=== PATIENT | male | born 1950 | race Caucasian/White ===

== ENCOUNTER 2017-01-28 10:03 | Emergency (ER) | payer MEDICARE, BC ==
[2017-01-28] MEDS ORDERED: Sodium Chloride 0.9% 10 ML Syringe FLUSH PRN ×2 (10:55→11:00)
[2017-01-28] MEDS ORDERED: Sodium Chloride 0.9% 1,000 ML IV SCH (11:00)
[2017-01-28] MEDS ORDERED: Diatrizoate Meglumine/Diatrizoate Sodium 37% 120 ML Bottle PO ONE (11:00)
[2017-01-28] MEDS ORDERED: Iopamidol 612 MG/ML 150 ML Bottle IVPUSH ONE (11:00)
--- NOTE | 2017-01-28 12:46 | EDM.PDOC ---
ED HPI GI/ABDOMINAL - General Chief Complaint: Abdominal Pain Stated Complaint: ABDOMINAL PAIN X1 WEEK Time Seen by Provider: 01/28/17 10:49 Source of Information: Reports: Patient History Limitations: Reports: No limitations - History of Present Illness INITIAL COMMENTS - FREE TEXT/NARRATIVE: The patient presents with left lower abdominal pain for the past week. This morning he woke up and it was more severe and sharp. He was nauseated last night. He had been constipated and he took some milk of magnesia last night and he had some diarrhea. He had a headache last night. He has no nausea or vomiting now. The pain is good now. He has no fever or chills. He has no chest pain or shortness of breath. He has no dysuria. He still has his gallbladder but his appendix was removed when he was a child. Timing/Duration: Reports: Week(s): (1) Location: [facility] Quality: Reports: stabbing Severity: moderate Context: Denies: sick contact, bad/questionable food, out of country travel, recent surgery, recent trauma, lifting, activity/exercise Associated Symptoms: Reports: diarrhea, nausea/vomiting. Denies: chest pain, fever/chills - Related Data Allergies/ADRs: Allergies Allergy/AdvReac Type Severity Reaction Status Date / Time No Known Allergies Allergy Verified 01/28/17 10:45 Home Meds: Home Meds Dabigatran Etexilate Mesylate [Pradaxa] 150 mg PO DAILY 01/28/17 [History] Flecainide Acetate 50 mg PO DAILY 01/28/17 [History] Hydrocodone/Acetaminophen [Hydrocodon-Acetaminophen 5-325] 1 - 2 each PO Q6HR PRN #20 tablet 01/28/17 [Rx] Losartan [Cozaar] 50 mg PO DAILY 01/28/17 [History] Metoprolol Tartrate 25 mg PO DAILY 01/28/17 [History] Rosuvastatin [Crestor] 10 mg PO DAILY 01/28/17 [History] Tamsulosin HCl [Flomax] 0.4 mg PO DAILY #10 cap.er.24h 01/28/17 [Rx] Past Medical History Cardiovascular History: Reports: Afib Gastrointestinal History: Reports: Other (see below) Other Gastrointestinal History: Pt had resection of colon 10 years ago after precancerous polyp was found Genitourinary History: Reports: Renal calculus Other Genitourinary History: kidney stones Other Psychiatric History: Pt states "I am a vasel vagel type of jennifer, I have been known to pass out when a needle comes my way." Other Dermatologic History: Rosacia - Past Surgical History Cardiovascular Surgical History: Reports: Pacer GI Surgical History: Reports: Hernia repair/other Musculoskeletal Surgical History: Reports: Other (see below) Other Musculoskeletal Surgeries/Procedures:: Back surgery to repair disk in 1985 Social & Family History - Tobacco Use Smoking Status *Q: Never Smoker Second Hand Smoke Exposure: Yes - Caffeine Use Caffeine Use: Reports: Coffee - Recreational Drug Use Recreational Drug Use: No ED ROS GENERAL - Review of Systems Review Of Systems: See Below Constitutional: Reports: no symptoms HEENT: Reports: No symptoms Respiratory: Reports: No Symptoms Cardiovascular: Reports: No symptoms Endocrine: Reports: no symptoms GI/Abdominal: Reports: Abdominal pain, Nausea. Denies: Vomiting : Reports: no symptoms Musculoskeletal: Reports: no symptoms Skin: Reports: no symptoms Neurological: Reports: Headache ED EXAM, GI/ABD - Physical Exam Exam: See Below Exam Limited By: No limitations General Appearance: alert, no apparent distress Ears: normal external exam Nose: normal inspection Head: atraumatic, normocephalic Neck: normal inspection Respiratory/Chest: no respiratory distress, lungs clear, normal breath sounds Cardiovascular: regular rate, rhythm, no edema, no murmur GI/Abdominal: soft, non tender, no organomegaly Back Exam: normal inspection Extremities: normal inspection Course - Vital Signs Last Recorded V/S: Last Vital Signs Temp 98 F 01/28/17 10:41 Pulse 70 01/28/17 10:41 Resp 18 01/28/17 10:41 BP 142/91 H 01/28/17 10:41 Pulse Ox 97 01/28/17 10:41 - Orders/Labs/Meds Orders: Active Orders 24 hr Category Date Time Status Peripheral IV Care [RC] . DIRECTED Care 01/28/17 10:56 Active Sodium Chloride 0.9% [Normal Saline] 1,000 ml Med 01/28/17 11:00 Active IV ASDIRECTED Sodium Chloride 0.9% [Saline Flush] Med 01/28/17 10:55 Active 10 ml FLUSH ASDIRECTED PRN Sodium Chloride 0.9% [Saline Flush] Med 01/28/17 11:00 Active 10 ml FLUSH ONETIME PRN Peripheral IV Insertion Adult [OM.PC] Stat Oth 01/28/17 10:55 Ordered Medication Orders Sodium Chloride (Normal Saline) 1,000 mls @ 125 mls/hr IV ASDIRECTED ANGEL Last Admin: 01/28/17 11:16 Dose: 125 mls/hr Sodium Chloride (Saline Flush) 10 ml FLUSH ASDIRECTED PRN PRN Reason: Keep Vein Open Last Admin: 01/28/17 11:16 Dose: 10 ml Sodium Chloride (Saline Flush) 10 ml FLUSH ONETIME PRN PRN Reason: IV FLUSH Last Admin: 01/28/17 12:11 Dose: 10 ml Labs: Laboratory Tests 01/28/17 01/28/17 01/28/17 Range/Units 11:15 11:15 Unknown WBC 7.38 (4.23-9.07) K/mm3 RBC 5.24 (4.63-6.08) M/mm3 Hgb 16.0 (13.7-17.5) gm/L Hct 47.3 (40.1-51.0) % MCV 90.3 (79.0-92.2) fl MCH 30.5 (25.7-32.2) pg MCHC 33.8 (32.2-35.5) g/dl RDW Std Deviation 44.2 H (35.1-43.9) fL Plt Count 197 (163-337) K/mm3 MPV 10.4 (9.4-12.3) fl Neut % (Auto) 76.9 H (34.0-67.9) % Lymph % (Auto) 13.6 L (21.8-53.1) % [place] % (Auto) 8.4 (5.3-12.2) % Eos % (Auto) 0.7 L (0.8-7.0) Baso % (Auto) 0.1 (0.1-1.2) % Neut # (Auto) 5.68 H (1.78-5.38) K/mm3 Lymph # (Auto) 1.00 L (1.32-3.57) K/mm3 [place] # (Auto) 0.62 (0.30-0.82) K/mm3 Eos # (Auto) 0.05 (0.04-0.54) K/mm3 Baso # (Auto) 0.01 (0.01-0.08) K/mm3 Sodium 140 (136-145) mEq/L Potassium 4.0 (3.5-5.1) mEq/L Chloride 106 (98-107) mEq/L Carbon Dioxide 24 (21-32) mEq/L Anion Gap 14.0 (5-15) BUN 17 (7-18) mg/dL Creatinine 1.1 (0.7-1.3) mg/dL Est Cr Clr Drug Dosing 71.53 mL/min Estimated GFR (MDRD) > 60 (>60) mL/min BUN/Creatinine Ratio 15.5 (14-18) Glucose 136 H (80-115) mg/dL Calcium 10.0 (8.5-10.1) mg/dL Total Bilirubin 0.9 (0.2-1.0) mg/dL AST 24 (15-37) U/L ALT 52 (16-63) U/L Alkaline Phosphatase 78 (46-116) U/L Total Protein 7.2 (6.4-8.2) g/dl Albumin 3.7 (3.4-5.0) g/dl Globulin 3.5 gm/dL Albumin/Globulin Ratio 1.1 (1-2) Lipase 91 (73-393) U/L Urine Color [place] H (Yellow) Urine Appearance Turbid H (Clear) Urine pH 6.5 (5.0-8.0) Ur Specific [place] 1.020 (1.005-1.030) Urine Protein 2+ H (Negative) Urine Glucose (UA) Negative (Negative) Urine Ketones Negative (Negative) Urine Occult Blood 3+ H (Negative) Urine Nitrite Negative (Negative) Urine Bilirubin 1+ H (Negative) Urine Urobilinogen 0.2 (0.2-1.0) Ur Leukocyte Esterase Negative (Negative) Urine RBC Too numerous to cnt H (0-5) /hpf Urine WBC 5-10 H (0-5) /hpf Ur Epithelial Cells Not seen (0-5) /hpf Urine Bacteria Not seen (FEW) /hpf Urine Mucus Not seen (FEW) /hpf Meds: Medications Generic Name Dose Route Start Last Admin Trade Name Freq PRN Reason Stop Dose Admin Sodium Chloride 1,000 mls @ 125 mls/hr 01/28/17 11:00 01/28/17 11:16 Normal Saline IV 125 mls/hr ASDIRECTED ANGEL Administration Sodium Chloride 10 ml 01/28/17 10:55 01/28/17 11:16 Saline Flush FLUSH 10 ml ASDIRECTED PRN Administration Keep Vein Open Sodium Chloride 10 ml 01/28/17 11:00 01/28/17 12:11 Saline Flush FLUSH 10 ml ONETIME PRN Administration IV FLUSH Discontinued Medications Generic Name Dose Route Start Last Admin Trade Name Rona PRN Reason Stop Dose Admin Diatrizoate Meglum/Diatrizoate Sod 120 ml 01/28/17 11:00 01/28/17 12:11 Gastrografin 37% PO 01/28/17 11:01 90 ml ONETIME ONE Administration Iopamidol 150 ml 01/28/17 11:00 01/28/17 12:11 Isovue-300 (61%) IVPUSH 01/28/17 11:01 150 ml ONETIME ONE Administration - Re-Assessments/Exams Free Text/Narrative Re-Assessment/Exam: 01/28/17 12:49 I ordered an IV NS. He does not need anything for pain or nausea at this time. His CBC looks good. His CMP was negative. His UA shows blood but no UTI. His CT looks like to me that he has a kidney stone. I am awaiting an official report. 01/28/17 13:[address] shows a 6.3mm partially obstructing stone within the distal ureter at at the level of the midpelvis. This causes mild proximal hydronerphrosis. Multiple cysts within the left kidney as well as several nonobstructing calculi within the left kidney. He is doing good. He did not require any pain meds. He has had kidney stones before and saw Dr Ramirez in the past. I will get him on some flomax and something for pain and have him follow up with Dr Ramirez's office. Departure - Departure Time of Disposition: 13:40 Disposition: Home, Self-Care 01 Condition: good Clinical Impression: Kidney stone, Ureteral calculi Prescriptions: Hydrocodone/Acetaminophen [Hydrocodon-Acetaminophen 5-325] 1 - 2 each PO Q6HR PRN #20 tablet PRN Reason: Pain Tamsulosin HCl [Flomax] 0.4 mg PO DAILY #10 cap.er.24h Referrals: Chirag Olivarez MD [Primary Care Provider] - 1 Week () Joseph Ramirez MD [Physician] - Forms: ED Department Discharge Additional Instructions: Take the flomax daily. Take the hydrocodone every 6 hours as needed for pain. Call Dr Ramirez's office today and see when they can get you in. Please return if you are worse. - My Orders Last 24 Hours: My Active Orders 01/28/17 10:55 Sodium Chloride 0.9% [Saline Flush] 10 ml FLUSH ASDIRECTED PRN Peripheral IV Insertion Adult [OM.PC] Stat 01/28/17 10:56 Peripheral IV Care [RC] . DIRECTED 01/28/17 11:00 Sodium Chloride 0.9% [Normal Saline] 1,000 ml IV ASDIRECTED Sodium Chloride 0.9% [Saline Flush] 10 ml FLUSH ONETIME PRN - Assessment/Plan Last 24 Hours: My Active Orders 01/28/17 10:55 Sodium Chloride 0.9% [Saline Flush] 10 ml FLUSH ASDIRECTED PRN Peripheral IV Insertion Adult [OM.PC] Stat 01/28/17 10:56 Peripheral IV Care [RC] . DIRECTED 01/28/17 11:00 Sodium Chloride 0.9% [Normal Saline] 1,000 ml IV ASDIRECTED Sodium Chloride 0.9% [Saline Flush] 10 ml FLUSH ONETIME PRN
--- NOTE | 2017-01-28 13:15 | CT ---
CT abdomen and pelvis Technique: Multiple axial sections were obtained from above the dome of the diaphragm inferiorly through the pubic symphysis. Intravenous and oral contrast was utilized. Delayed images were also obtained through the abdomen and pelvis. Findings: Multiple cysts are seen within the left kidney. Several nonobstructing calculi are also seen within the left kidney. Left ureter is mildly prominent in size. Calcification is identified within the distal ureter at the mid pelvic level measuring approximately 6.3 mm in size which is felt compatible with a partially obstructing ureteral stone. Delayed images shows contrast past this stone. Contrast filled ureters otherwise appear unremarkable. Visualized lung bases shows nothing acute. Liver shows no focal parenchymal abnormality. Spleen appears within normal limits. Adrenal glands show no nodule. Pancreas is within normal limits. Aorta shows mild ectasia and atherosclerotic change without aneurysmal dilatation. No retroperitoneal adenopathy or mesenteric abnormalities are seen. No pelvic mass or adenopathy is seen. Incidental prostate calcifications are seen. Multiple diverticuli are seen within the descending and sigmoid colon without inflammatory change of diverticulitis. Bone window settings were reviewed which show scattered degenerative change and scoliosis within the spine. Impression: 1. 6.3 mm partially obstructing stone within the distal ureter at the level of the midpelvis. This causes mild proximal hydronephrosis. 2. Multiple cysts within the left kidney as well as several nonobstructing calculi within the left kidney. 3. Other incidental findings as described above. Diagnostic code #3
[2017-01-28 14:07] VITALS: BP 142/90
== END 2017-01-28 14:00 | disposition home or self-care (01) ==
LOC: JD.ED 10:03
DX: N20.0 Calculus of kidney (principal); N13.2 Hydronephrosis with renal and ureteral calculous obstruction; I48.91 Unspecified atrial fibrillation; Z79.899 Other long term (current) drug therapy
CPT/HCPCS: 36415; 74177; 80053; 81001; 83690; 85025; 96360; 96361; 99284; J7040; J7050; Q9963; Q9967; 99283

== ENCOUNTER 2019-07-28 12:08 | Emergency (ER) | payer MEDICARE, BC ==
[2019-07-28 12:24] VITALS: PULSE 70
[2019-07-28] MEDS ORDERED: Ondansetron 4 MG/2 ML SDV IVPUSH ONE (12:48)
--- NOTE | 2019-07-28 12:51 | EDM.PDOC ---
ED HPI GENERAL MEDICAL PROBLEM - General Chief Complaint: Cardiovascular Problem Stated Complaint: POSS A-FIB Time Seen by Provider: 07/28/19 12:30 Source of Information: Reports: Patient History Limitations: Reports: No Limitations - History of Present Illness INITIAL COMMENTS - FREE TEXT/NARRATIVE: 69-year-old male presents to the ED for evaluation of fairly acute onset of dizziness associated with nausea and vomiting 2. He states this often happens when he goes into atrial fibrillation. Patient has a history of paroxysmal atrial fibrillation that used to cause syncope dating back almost 10 years ago. Is currently has had a pacemaker placed and is set at 70/m. He is on plaque tonight and metoprolol twice a day. He is also on Eliquis daily. States emesis was bilious with partially digested breakfast. Recent falls or closed head injuries. Generally doesn't feel well at that time. No chest pain or shortness of breath. Still mildly nauseated. He had his [id number] drive him back from the farm to [place]. Onset: Today Onset Date: 07/28/19 Onset Time: 11:00 Duration: Minutes: Location: Reports: Generalized (Analyzed sense of unwellness. Dizzy lightheaded nausea and vomiting 2 without any chest pain.) Severity: Moderate Improves with: Reports: None ( Paroxysmal atrial flutter. States this is often how it makes him feel.) Worsens with: Reports: None Context: Reports: Other (Spontaneous occurrence of dizziness lightheadedness nausea and vomiting 2.). Denies: Activity, Exercise, Lifting, Sick Contact, Trauma Associated Symptoms: Reports: Loss of Appetite, Malaise, Nausea/Vomiting, Weakness. Denies: Confusion, Chest Pain, Cough, cough w sputum, Fever/Chills, Headaches, Rash, Seizure, Shortness of Breath, Syncope Treatments [employer]URING [employer]CHNICIAN: Reports: Other (see below) (None.) Headache Pain Score (Numeric/FACES): 2 - Related Data Allergies Allergy/AdvReac Type Severity Reaction Status Date / Time No Known Allergies Allergy Verified 07/28/19 12:24 Home Meds: Home Meds Flecainide Acetate 100 mg PO BID 01/28/17 [History] Losartan [Cozaar] 50 mg PO DAILY 01/28/17 [History] Metoprolol Tartrate 25 mg PO BID 01/28/17 [History] Rosuvastatin [Crestor] 10 mg PO DAILY 01/28/17 [History] Apixaban [Eliquis] 5 mg PO BID 07/28/19 [History] Past Medical History Cardiovascular History: Reports: Afib Gastrointestinal History: Reports: Other (See Below) Other Gastrointestinal History: Pt had resection of colon 10 years ago after precancerous polyp was found Genitourinary History: Reports: Renal Calculus Other Genitourinary History: kidney stones Other Psychiatric History: Pt states "I am a vasel vagel type of jennifer, I have been known to pass out when a needle comes my way." Other Dermatologic History: Rosacia - Past Surgical History Cardiovascular Surgical History: Reports: Pacer GI Surgical History: Reports: Hernia Repair/Other Musculoskeletal Surgical History: Reports: Other (See Below) Social & Family History - Tobacco Use Smoking Status *Q: Never Smoker - Caffeine Use Caffeine Use: Reports: Coffee - Recreational Drug Use Recreational Drug Use: No - Living Situation & Occupation Living situation: Reports: Occupation: Retired (Self-employed) ED ROS GENERAL - Review of Systems Review Of Systems: See Below Constitutional: Reports: Malaise, Weakness, Fatigue, Decreased Appetite. Denies : Fever, Chills, Weight Loss HEENT: Reports: Glasses Respiratory: Denies: Shortness of Breath, Wheezing, Pleuritic Chest Pain, Cough , Sputum Cardiovascular: Reports: Blood Pressure Problem, Lightheadedness. Denies: Chest Pain, Claudication, Dyspnea on Exertion, Edema, Orthopnea (On medication for this in current blood pressure is 145 on 73.), Palpitations Endocrine: Reports: Fatigue GI/Abdominal: Reports: Nausea, Vomiting (2 prior to coming to the ED of bilious material and partially digested breakfast.) : Reports: Frequency, Other (Nocturia usually 1 or 2.) Musculoskeletal: Reports: Joint Pain (These hips and low back may get times.) Skin: Reports: Bruising (Bruises rarely. He is on Eliquis) Neurological: Reports: Dizziness, Weakness. Denies: Confusion, Headache, Numbness, Pre-Existing Deficit, Seizure, Syncope, Tingling, Trouble Speaking, Difficulty Walking Psychiatric: Reports: No Symptoms Hematologic/Lymphatic: Reports: No Symptoms Immunologic: Reports: No Symptoms ED EXAM, GENERAL - Physical Exam Exam: See Below Exam Limited By: No Limitations General Appearance: Alert, WD/WN, Mild Distress, Other (Temperature 36.7. Heart rate is 70 and on the monitor shows 100% paced rhythm. Respiratory distress 20 sats are 98% on room air BP 1 4573.) Eye Exam: Bilateral Eye: Normal Inspection, PERRL Throat/Mouth: Normal Inspection, Normal Lips, Normal Oropharynx Head: Atraumatic, Normocephalic Neck: Normal Inspection, Supple, Non-Tender, Full Range of Motion. No: Carotid Bruit, Lymphadenopathy (L), Lymphadenopathy (R) Respiratory/Chest: No Respiratory Distress, Lungs Clear, Normal Breath Sounds, No Accessory Muscle Use, Chest Non-Tender, Respiratory Distress (Mild tachypnea. ) Cardiovascular: Normal Peripheral Pulses, Regular Rate, Rhythm, No Edema, No Gallop, No Murmur, No Rub, Other (Monitor reveals 100% paced rhythm at 70/m.) Peripheral Pulses: 2+: Posterior Tibial (L), Posterior Tibial (R), Dorsalis Pedis (L), Dorsalis Pedis (R) GI/Abdominal: Normal Bowel Sounds, Soft, Non-Tender, No Organomegaly, No Abnormal Bruit, No Mass, Pelvis Stable Back Exam: Normal Inspection, Full Range of Motion. No: CVA Tenderness (L), CVA Tenderness (R) Extremities: Normal Inspection, Normal Range of Motion, Non-Tender Neurological: Alert, Oriented, CN II-XII Intact, Normal Cognition, No Motor/ Sensory Deficits Psychiatric: Flat Affect Skin Exam: Warm, Dry, Intact, Normal Color, No Rash EKG INTERPRETATION EKG Date: 07/28/19 Time: 13:15 Rhythm: Other (100% paced rhythm) Rate (Beats/Min): 70 Mcrae: LAD-Left Mcrae Deviation (-49.) P-Wave: Absent QRS: Other (Near Q waves leads 3 and aVF. Consider possible old inferior wall myocardial infarction.) ST-T: Other (T-wave flattening aVF) QT: Prolonged (Moderately prolonged) EKG Interpretation Comments: Abnormal ECG Course - Vital Signs Last Recorded V/S: Last Vital Signs Temp 36.7 C 07/28/19 12:21 Pulse 70 07/28/19 18:03 Resp 20 07/28/19 12:21 BP 156/78 H 07/28/19 18:03 Pulse Ox 98 07/28/19 12:21 - Orders/Labs/Meds Orders: Active Orders 24 hr Category Date Time Status EKG 12 Lead [EKG Documentation Completion] [RC] STAT Care 07/28/19 17:27 Active EKG Documentation Completion [RC] STAT Care 07/28/19 12:47 Active EKG Documentation Completion [RC] STAT Care 07/28/19 15:49 Active Influenza Vaccine Charge [RC] .DISCHARGE Care 07/28/19 12:27 Active CALCIUM, IONIZED, SERUM [REF] Stat Lab 07/28/19 14:36 Received Labs: Laboratory Tests 07/28/19 07/28/19 07/28/19 Range/Units 12:23 12:23 12:23 WBC 8.12 (4.23-9.07) K/mm3 RBC 5.24 (4.63-6.08) M/mm3 Hgb 16.1 (13.7-17.5) gm/dl Hct 47.8 (40.1-51.0) % MCV 91.2 (79.0-92.2) fl MCH 30.7 (25.7-32.2) pg MCHC 33.7 (32.2-35.5) g/dl RDW Std Deviation 43.9 (35.1-43.9) fL Plt Count 207 (163-337) K/mm3 MPV 10.6 (9.4-12.3) fl Neut % (Auto) 78.8 H (34.0-67.9) % Lymph % (Auto) 12.6 L (21.8-53.1) % [place] % (Auto) 7.0 (5.3-12.2) % Eos % (Auto) 1.0 (0.8-7.0) Baso % (Auto) 0.2 (0.1-1.2) % Neut # (Auto) 6.40 H (1.78-5.38) K/mm3 Lymph # (Auto) 1.02 L (1.32-3.57) K/mm3 [place] # (Auto) 0.57 (0.30-0.82) K/mm3 Eos # (Auto) 0.08 (0.04-0.54) K/mm3 Baso # (Auto) 0.02 (0.01-0.08) K/mm3 PT 11.0 (9.7-12.0) SECONDS INR 1.01 Sodium 140 (136-145) mEq/L Potassium 3.8 (3.5-5.1) mEq/L Chloride 104 (98-107) mEq/L Carbon Dioxide 25 (21-32) mEq/L Anion Gap 14.8 (5-15) BUN 21 H (7-18) mg/dL Creatinine 1.1 (0.7-1.3) mg/dL Est Cr Clr Drug Dosing 68.59 mL/min Estimated GFR (MDRD) > 60 (>60) mL/min BUN/Creatinine Ratio 19.1 H (14-18) Glucose 158 H (80-115) mg/dL Calcium 10.6 H (8.5-10.1) mg/dL Magnesium 1.9 (1.8-2.4) mg/dl Total Bilirubin 0.7 (0.2-1.0) mg/dL AST 16 (15-37) U/L ALT 32 (16-63) U/L Alkaline Phosphatase 76 (46-116) U/L CK-MB (CK-2) 2.3 (0-3.6) ng/ml Troponin I < 0.017 (0.00-0.056) ng/mL NT-Pro-B Natriuret Pep (0-125) pg/mL Total Protein 7.5 (6.4-8.2) g/dl Albumin 3.9 (3.4-5.0) g/dl Globulin 3.6 gm/dL Albumin/Globulin Ratio 1.1 (1-2) TSH 3rd Generation 2.566 (0.358-3.74) uIU/mL 07/28/19 Range/Units 12:23 WBC (4.23-9.07) K/mm3 RBC (4.63-6.08) M/mm3 Hgb (13.7-17.5) gm/dl Hct (40.1-51.0) % MCV (79.0-92.2) fl MCH (25.7-32.2) pg MCHC (32.2-35.5) g/dl RDW Std Deviation (35.1-43.9) fL Plt Count (163-337) K/mm3 MPV (9.4-12.3) fl Neut % (Auto) (34.0-67.9) % Lymph % (Auto) (21.8-53.1) % [place] % (Auto) (5.3-12.2) % Eos % (Auto) (0.8-7.0) Baso % (Auto) (0.1-1.2) % Neut # (Auto) (1.78-5.38) K/mm3 Lymph # (Auto) (1.32-3.57) K/mm3 [place] # (Auto) (0.30-0.82) K/mm3 Eos # (Auto) (0.04-0.54) K/mm3 Baso # (Auto) (0.01-0.08) K/mm3 PT (9.7-12.0) SECONDS INR Sodium (136-145) mEq/L Potassium (3.5-5.1) mEq/L Chloride (98-107) mEq/L Carbon Dioxide (21-32) mEq/L Anion Gap (5-15) BUN (7-18) mg/dL Creatinine (0.7-1.3) mg/dL Est Cr Clr Drug Dosing mL/min Estimated GFR (MDRD) (>60) mL/min BUN/Creatinine Ratio (14-18) Glucose (80-115) mg/dL Calcium (8.5-10.1) mg/dL Magnesium (1.8-2.4) mg/dl Total Bilirubin (0.2-1.0) mg/dL AST (15-37) U/L ALT (16-63) U/L Alkaline Phosphatase (46-116) U/L CK-MB (CK-2) (0-3.6) ng/ml Troponin I (0.00-0.056) ng/mL NT-Pro-B Natriuret Pep 203 H (0-125) pg/mL Total Protein (6.4-8.2) g/dl Albumin (3.4-5.0) g/dl Globulin gm/dL Albumin/Globulin Ratio (1-2) TSH 3rd Generation (0.358-3.74) uIU/mL Meds: Medications Discontinued Medications Generic Name Dose Route Start Last Admin Trade Name Freq PRN Reason Stop Dose Admin Adenosine Confirm 07/28/19 16:43 07/28/19 16:49 Adenocard Administered 07/28/19 16:44 Not Given Dose 6 mg .ROUTE .STK-MED ONE Adenosine Confirm 10/31/19 16:43 07/28/19 16:49 Adenocard Administered 07/28/19 16:44 Not Given Dose 12 mg .ROUTE .STK-MED ONE Adenosine 6 mg 07/28/19 16:47 07/28/19 16:58 Adenocard IVPUSH 07/28/19 16:48 6 mg NOW ONE Administration Adenosine 12 mg 07/28/19 16:48 07/28/19 17:23 Adenocard IVPUSH 07/28/19 16:49 Not Given NOW ONE Diltiazem HCl 10 mg 07/28/19 14:46 07/28/19 14:55 Cardizem IVPUSH 07/28/19 14:47 10 mg ONETIME ONE Administration Diltiazem HCl 10 mg 07/28/19 15:19 07/28/19 15:26 Cardizem IVPUSH 07/28/19 15:20 10 mg ONETIME ONE Administration Fentanyl 100 mcg 07/28/19 16:23 07/28/19 18:04 Sublimaze IVPUSH 07/28/19 16:24 Not Given ONETIME ONE Dextrose/Sodium Chloride 1,000 mls @ 100 mls/hr 07/28/19 13:00 07/28/19 12:58 Dextrose 5%-Normal Saline IV 100 mls/hr ASDIRECTED ANGEL Administration Diltiazem HCl 125 mg/ Sodium 125 mls @ 10 mls/hr 07/28/19 15:00 07/28/19 15: 17 Chloride IV 5 mg/hr TITRATE ANGEL 5 mls/hr Administration Protocol 10 MG/HR Influenza Virus Vaccine 1 each 07/28/19 12:26 Pharmacy To Dose - Influenza Vaccine IM 07/28/19 12:27 ONETIME ONE Influenza Virus Vaccine 180 mcg 07/28/19 12:45 07/28/19 13:00 Fluzone High-Dose 2019-20 Syringe IM 07/28/19 12:46 180 mcg .ONCE ONE Administration Lorazepam 0.5 mg 07/28/19 13:34 07/28/19 13:44 Ativan IVPUSH 07/28/19 13:35 0.5 mg ONETIME ONE Administration Metoclopramide HCl 7.5 mg 07/28/19 16:23 07/28/19 16:44 Reglan IVPUSH 07/28/19 16:24 7.5 mg ONETIME ONE Administration Metoprolol Tartrate 5 mg 07/28/19 17:57 07/28/19 18:03 Lopressor IVPUSH 07/28/19 17:58 5 mg ONETIME ONE Administration Midazolam HCl 5 mg 07/28/19 16:24 07/28/19 18:04 Versed 1 Mg/Ml IVPUSH 07/28/19 16:25 Not Given ONETIME ONE Midazolam HCl Confirm 07/28/19 16:41 07/28/19 18:04 Versed 1 Mg/Ml Administered 07/28/19 16:42 Not Given Dose 4 mg .ROUTE .STK-MED ONE Ondansetron HCl 4 mg 07/28/19 12:48 07/28/19 13:00 Zofran IVPUSH 07/28/19 12:49 4 mg ONETIME ONE Administration - Radiology Interpretation Free Text/Narrative:: 69-year-old male presents to the ED for evaluation of sudden onset of generally not feeling well. Stated he felt dizzy lightheaded and then nausea and vomited 2 of bilious partially digested food. No hematemesis. He said it came on suddenly and ease had this occur in the past with onset of atrial fibrillation. History of paroxysmal atrial fibrillation and kept on fainting in the past. Diagnosed finally with Sha leyva and a pacemaker was placed and he hasn't fainted since. His rhythm at present is paced rhythm at 70/m. Is complaining of feeling a little bit weak nauseated and perhaps mild headache. Of note the patient is on aliquots 20 mg daily for prevention of stroke. Neuro exam is normal at this time. Plan D5 normal saline at 100 mils per hour. Routine labs will be collected. ECG and a chest x-ray will be done. Will give dose of Zofran [address] head if symptoms worsen or he continues to vomit. - Re-Assessments/Exams Free Text/Narrative Re-Assessment/Exam: 07/28/19 13:24 ECG reveals 100% paced rhythm at 70/m an underlying rhythm appears to be atrial fibrillation with a regular baseline. Portable chest x-ray reveals mild diffuse vascular congestion mostly centrally. Pacemaker left upper anterior chest. Lungs otherwise clear. 07/28/19 13:35 patient is complaining of feeling increased dizzy and lightheaded. He remains in paced rhythm at 70/m with underlying rhythm of atrial fib. He remains nauseated. Is very anxious. I am going to proceed with CT of the head to make sure he did not have any intracranial bleeding from Eliquis. Will give Ativan 0.5 mg IV. 07/28/19 13:47 CT of the head is within normal limits for patient's age there is no intracranial pathology apparent. Labs are back showing a normal white count at 8.12. He auto differential is showing mild left shift of 78.8% neutrophils. Hemoglobin is 16.1 with hematocrit of 47.8 suggesting mild hemoconcentration. Platelet count 207,000. PT is 11.0 with an INR 1.01. Sodium 140 with potassium 3.8. Cord 1/4 Vicryl 25. Anion gap is 14.8. BUN is 21 with a creatinine of 1.1. GFR is greater than 60. Glucose 158 with a calcium of 10.6 mildly elevated. On 0.9. Liver function normal CK-MB fraction 2.3 troponin I's less than 0.017. BNP minimally elevated at 203. Total protein is 7.5 with an albumin fraction of 3.9 TSH is 2.56. 07/28/19 14:40: Patient continues to feel unwell. I spoke with Dr. Olivarez his primary care practitioner when he lived in [place] and he believes that the patient was usually in sinus rhythm with pacemaker. It's therefore appears that he may well of gone back into paroxysmal atrial fibrillation. Start for me to believe that he's as symptomatic as he has but he definitely appears unwell. Spoke with Dr. 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 He agrees that if the patient is symptomatic the only way to find out is to converted back to sinus rhythm. Ideally these options the patient about whether he electrical cardioversion versus attempt at chemical cardioversion and he opted for chemical cardioversion at this time. The plan will be therefore to start him on Cardizem drip at 10 mg IV bolus and then 5 units an hour. His blood pressure is 170 systolic and therefore we have quite a bit of room to use Cardizem. 07/28/19 15:18 remains in atrial fibrillation with paced rhythm at 69 70/m. Blood pressure is 140/68 give him a second dose of Cardizem 10 mg IV bolus and increase to 10 mg per hour. Patient appears tired. 07/28/19 15:41 patient remains an age fibrillation. Blood pressure is down to 126 /69. 02 sats remain good at 99%. good at 99%. 07/28/19 15:51 Difficult to interpret monitor strip as atrial fibrillation appears to be persisting but I can see his pacemaker spike better than I could before. Therefore I am going to repeat his ECG. 07/28/19 16:10: Repeat ECG reveals AV paced rhythm at 70/m with underlying atrial fibrillation with a rate of 400/m unchanged on Cardizem drip 2 hours. 07/28/19 16:22 after 2 hours a Cardizem drip patient's atrial rate hasn't changed one bit. I therefore discussed the options with him and he has opted for cardioversion. We will therefore attempt cardioversion under conscious sedation. Plan is to perform conscious sedation using fentanyl and Versed IV. Consent to be obtained. Discussed case with Dr. Lynch conference assistant hospitalist with a view to helping me as we would have to turn off his pacemaker if we cardiovert him. 07/28/19 17:[address] Bailey hospitalist iin attendance with the patient in the ED decision made to try adenosine IV. . Given 6 mg intravenously and it appeared to reduce his atrial fibrillation rate. No better. The plan is to interrogate his pacemaker. It is a [employer] pacemaker. 07/28/19 17:57 patient feels better and he seems to be in regular rhythm. His speech been determined by interrogating his pacemaker that his atrial sensing component of the pacemaker is not functioning. [place] that is going to need adjustment of its thresholds. Patient will be given 5 mg of Lopressor in the ER to see if this will maintain his A. fib rate and he will take 25 mg of metoprolol tonight and his flecainide. He is instructed to follow-up with pacemaker clinic/director of loss prevention tomorrow or go into the hospital tonight if he begins to feel unwell. at present he feels much better. Departure - Departure Time of Disposition: 18:00 Disposition: Home, Self-Care 01 Condition: Fair Clinical Impression: Paroxysmal atrial fibrillation, Nausea and vomiting in adult patient Instructions: Atrial Fibrillation, [id number] Referrals: Chirag Olivarez MD [Physician] - Forms: ED Department Discharge Additional Instructions: Evaluation the emergency room today in regards to sudden onset of feeling unwell primarily with dizziness and then nausea and vomiting 2 of bilious material and partially digested breakfast. As you indicated this occurs almost every time he go into atrial fibrillation. You have a history of paroxysmal atrial fibrillation and in fact have a pacemaker in place to prevent syncope which used to happen when used to go into atrial fibrillation. Her heart is 100 % ventricular paced at 70/m. Over the atrial rate today was up to 400 bpm. After speaking with you primary care physician Dr. Olivarez he indicated that you are usually in sinus rhythm. Therefore Made during Her Stay in the ED to stop the atrial fibrillation and converted back to sinus rhythm. Cardizem intravenously for 2-1/2 hours did not slow the atrial fibrillation rate. I did a card given intravenously 6 mg did seem to convert to back to regular rhythm. 5 mg metoprolol one half hour later to hopefully maintain you in regular sinus rhythm. Irrigation of your pacemaker suggests that the atrial sensing component of the pacemaker is not functioning properly. For this reason you need to follow -up with cardiology or pacemaker clinic for further evaluation in this regard. Please take your fact denied and metoprolol dosage orally tonight as per usual. If you feel unwell at all tonight then please travel to [facility] where usually receives care. - My Orders Last 24 Hours: My Active Orders 07/28/19 12:27 Influenza Vaccine Charge [RC] .DISCHARGE 07/28/19 12:47 EKG Documentation Completion [RC] STAT 07/28/19 14:36 CALCIUM, IONIZED, SERUM [REF] Stat 07/28/19 15:49 EKG Documentation Completion [RC] STAT - Assessment/Plan Last 24 Hours: My Active Orders 07/28/19 12:27 Influenza Vaccine Charge [RC] .DISCHARGE 07/28/19 12:47 EKG Documentation Completion [RC] STAT 07/28/19 14:36 CALCIUM, IONIZED, SERUM [REF] Stat 07/28/19 15:49 EKG Documentation Completion [RC] STAT
[2019-07-28] MEDS ORDERED: Dextrose 5%-0.9% NaCl 1,000 ML IV SCH (13:00)
[2019-07-28] MEDS ORDERED: LORazepam 2 MG/ML SDV IVPUSH ONE (13:34)
--- NOTE | 2019-07-28 13:46 | CR ---
Chest: Portable view of the chest was obtained. Comparison: Prior chest x-ray of 08/12/13. Heart size is normal. Tortuous thoracic aorta is noted. Bichamber pacemaker is seen. Lungs are clear with no acute parenchymal change. Bony structures show mild scoliosis within the spine. Mild degenerative change is noted within the spine. Impression: 1. Findings as noted above. Nothing acute is seen. Diagnostic code #2
--- NOTE | 2019-07-28 14:38 | CT ---
Head CT Technique: Multiple axial sections through the brain were obtained. Intravenous contrast was not utilized. Comparison: Prior noncontrast head CT study of 06/23/15. Findings: Ventricles along with basal cisterns and sulci over the convexities are within normal limits for the patient's age. Several old lacunar infarcts are noted within the basal ganglia. No other abnormal parenchymal densities are seen. No evidence of intracranial hemorrhage. No midline shift or mass effect is seen. Bone window settings were reviewed which show minimal areas of mucosal thickening within the paranasal sinuses which is felt to be incidental. Mastoid sinuses are clear. No acute calvarial abnormality is seen. Impression: 1. Slight senescent change as noted above. 2. Nothing acute is seen on noncontrast head CT exam. No significant change from previous study is seen. Diagnostic code #2
[2019-07-28] MEDS ORDERED: Diltiazem 50 MG/10 ML SDV IVPUSH ONE ×2 (14:46→15:19)
[2019-07-28] MEDS ORDERED: Diltiazem 125 MG in Sodium Chloride 0.9% 100 ML IV SCH (15:00)
[2019-07-28] MEDS ORDERED: Metoclopramide 10 MG/2 ML SDV IVPUSH ONE (16:23)
[2019-07-28] MEDS ORDERED: fentaNYL 100 MCG/2 ML SDV IVPUSH ONE (16:23)
[2019-07-28] MEDS ORDERED: Midazolam 1 MG/ML 5 ML SDV IVPUSH ONE (16:24)
[2019-07-28] MEDS ORDERED: Midazolam 1 MG/ML 2 ML SDV ONE (16:41)
[2019-07-28] MEDS ORDERED: Adenosine 6 MG/2 ML SDV ONE (16:43)
[2019-07-28] MEDS ORDERED: Adenosine 6 MG/2 ML SDV IVPUSH ONE ×2 (16:47→16:48)
[2019-07-28] MEDS: Adenosine 12 MG/4 ML SDV ONE ×3 (16:49→17:00)
[2019-07-28] MEDS ORDERED: Metoprolol Tartrate 5 MG/5 ML SDV IVPUSH ONE (17:57)
[2019-07-28 18:03] VITALS: BP 156/78
== END 2019-07-28 18:28 | disposition home or self-care (01) ==
LOC: JD.ED 12:08
DX: I48.0 Paroxysmal atrial fibrillation (principal); R11.2 Nausea with vomiting, unspecified; Z95.0 Presence of cardiac pacemaker; Z79.01 Long term (current) use of anticoagulants
CPT/HCPCS: 36415; 70450; 70450-26; 71045; 71045-26; 80053; 82330; 82553; 83735; 83880; 84443; 84484; 85025; 85610; 90662; 93005; 96361; 96365; 96366; 96375; 96376; 99285-25; G0008; J0153; J2060; J2405; J2765; J3490; J7030; J7042